=== PATIENT | female | born 1940 | race Caucasian/White ===

== ENCOUNTER 2024-08-10 12:27 | Outpatient (CLI) | payer MEDICARE, BC, SELFPAY ==
--- OUTSIDE RECORDS SUMMARY | 2024-07-23 12:30 | XMS_ITS | Encounter Summary ---
Author Organization [facility] Address [address] [place] [address] Care Team Providers Care Tax Advisor Name Role Phone Lito Sanz MD Unavailable [phone] Kisha Mena MD Primary Care Provider [phone] Chon Rosario MD Unavailable [phone] Chon Rosario MD Unavailable [phone] Reason for Visit * Reason Comments Diplopia Follow-Up Patient is s/p strab sx 03/30/24 for alternating ET and left hypotropia. She was given ground-in prism glasses at her last visit. She reports no initial double vision when she received the glasses but reports the double vision slowly returned - it seems to be worse at near. Vision appears not as clear with the glasses on. Only wearing the glasses when she's out, does not wear any correction while at home. MICHAEL Castillo 07/23/2024 12:08 PM Encounter Details Date Type Department Care Team (Late st Contact Info) Description 07/23/2024 12:30 PM CDT Office Visit [facility] [place] [address] [facility] [address] [place] [id number] Chon Rosario MD [address] [place] [address] Double vision (Primary Dx); Subjective visual disturbance; Hypertropia of left eye Social History Tobacco Use Types Packs/Day Years Used Date Smoking Tobacco: Never Assessed PHQ-2 Answer Date Recorded PHQ-2 Score 0 02/14/2024 Interpersonal Safety Answer Date Record ed Do you feel physically and e motionally safe where you currently live? Yes 03/30/2024 Within the past 12 months, h ave you been hit, slapped, kicked or otherwise physically hurt by someone? No 03/30/2024 Within the past 12 months, h ave you been humiliated or emotionally abused in other ways by your partner or ex-partner? 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 Myasthenia gravis- variable small angle right hypertropia after strabismus surgery leading to variable diplopia. Positive acetylcholine receptor binding antibody check on 05/21/24 2. Esotropia / Strabismus - a component of this was clearly not myasthenia gravis related as patient has not had any horizontal strabismus since her strabismus surgery. Patient seeing neurologist tomorrow. Due to her unexpected change in strabismus after strabismus surgery I checked a acetylcholine receptor binding antibody ( 0.14) on 05/21/24. Patient may have generalized myasthenia gravis given her difficulty with walking in the last year. She needs a CT chest. She is very hesitant to follow-up with me which adds an additional layer of challenge. No dysphagia. 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 - patient has healed up well after strabismus surgery 35 minutes were spent on the date of the encounter by me doing chart review, history and exam, documentation, and further activities as noted above Complete documentation of historical and exam elements from today's encounter can be found in the full encounter summary report (not reduplicated in this progress note). I personally obtained the chief complaint(s) and history of present illness. I confirmed and edited as necessary the review of systems, past medical/surgical history, family history, social history, and examination findings as documented by others; and I examined the patient myself. I personally reviewed the relevant tests, images, and reports as documented above. I formulated and edited as necessary the assessment and plan and discussed the findings and management plan with the patient and family MD Radha Johnson, OD documented in this encounter Plan of Treatment Upcoming Encounters Date Type Department Care Team (Late st Contact Info) Description 12/04/2024 11:00 AM CDT Office Visit [facility] [address] [place] [address] Chon Rosario MD [address] [place] [address] documented as of this encounter Procedures Procedure Name Priority Date/Time Associated Diagnosis Comments SENSORIMOTOR Routine 07/23/2024 1:37 PM CDT Double vision Subjective visual disturbance Hypertropia of left eye documented in this encounter Results * Sensorimotor (07/23/2024 1:37 PM CDT) Narrative Chon Rosario MD - 07/23/2024 1:37 PM CDT Performed by: robbie . Patient cooperation: Reliable . Reliability of the test: Good . Test Findings: Strabismus . Interpretation: Hypertropia, Noncomitant strabismus . Plan: Will monitor and consider eye muscle surgery, Prism therapy . Interval: Better . Chon Rosario MD OPHTHALMOLOGY Fin al Result documented in this encounter Visit Diagnoses Diagnosis Double vision- Primary Diplopia Subjective visual disturbance Subjective visual disturbance, unspecified Hypertropia of left eye documented in this encounter Care Teams Tax Advisor Relationship Specialty Start Date End Date Kisha Mena MD [address] [place] [address] PCP - General Family Medicine 12/17/23 Lito Sanz MD [address] [place] [address] [phone] Ophthalmology 11/01/23 Chon Rosario MD [address] [place] [address] [id number] Ophthalmology 12/17/23 Chon Rosario MD [address] [place] [address] [phone] Assigned Surgical Provider 03/05/24 documented as of this encounter
--- OUTSIDE RECORDS SUMMARY | 2024-07-23 12:30 | XMS_ITS | Encounter Summary ---
Author Organization [facility] Address [address] [place] [address] Care Team Providers Care Sewing Trimmer Name Role Phone Lito Sanz MD Unavailable [phone] Kisha Mena MD Primary Care Provider [phone] Chon Rosario MD Unavailable [phone] Chon Rosario MD Unavailable [phone] Reason for Visit * Reason Comments Diplopia [...] Description 07/23/2024 12:30 PM CDT Office Visit [facility] [place] [address] [facility] [address] [place] [phone] Chon Rosario MD [address] [place] [address] Double vision (Primary Dx); Subjective [...] on file 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 Gender Identity Not on file Sexual Orientation [...] Description 12/04/2024 11:00 AM CDT Office Visit [facility] [address] [place] [address] Chon Rosario MD [address] [place] [address] documented as of this encounter Procedures Procedure [...] eye documented in this encounter Care Teams Sewing Trimmer Relationship Specialty Start Date End Date Kisha Mena MD [address] [place] [address] PCP - General Family Medicine 12/17/23 Lito Sanz MD [address] [place] [address] [phone] Ophthalmology 11/01/23 Chon Rosario MD [address] [place] [address] [phone] Ophthalmology 12/17/23 Chon Rosario MD [address] [place] [address] [phone] Assigned Surgical Provider 03/05/24 documented as of this encounter
--- OUTSIDE RECORDS SUMMARY | 2024-07-24 11:00 | XMS_ITS | Encounter Summary ---
Author Organization [facility] Address [address] [place] [address] Care Team Providers Care Instrumentation Instructor Name Role Phone Kisha Mena MD Primary Care Prov ider Wood Lanier MD Unavailable [phone] Reason for Referral * Other (Routine) - Open Specialty Diagnoses / Procedures Referred By Yolanda hennessy Referred To Contact Diagnoses Ataxia Hyperreflexia Diplopia Procedures N NEUROLOGY APPOINTMENT Wood Lanier MD [address] [place] [address] [place] [address] Phone: tel: fax: Referral ID Status Reason Start Date Expiration Date Visits Re quested Visits Authorized [id number] Open 10/24/2024 1 1 * Consultation (Routine) - Authorized Specialty Diagnoses / Procedures Referred By Yolanda hennessy Referred To Contact Physical Therapy Diagnoses Ataxia Wood Lanier MD [address] [place] [address] [place] [address] Phone: tel: fax: Referral ID Status Reason Start Date Expiration Date Visits Requested Visits Authorized [id number] Authorized Specialty Services Required 07/24/2024 1 1 Question Answer Service to provide Physical Therapy Referral reason Evaluate and Treat Comments Weakness, myasthenia gravis, but does not explain degree of ataxia * (Routine) - Open Specialty Diagnoses / Procedures Referred By Contac t Referred To Contact Diagnoses Thymoma Procedures CT CHEST HIGH RESOLUTION FULL Wood Lanier MD [address] [place] [address] [place] [address] Phone: tel: fax: Referral ID Status Reason Start Date Expiration Date Visits Re quested Visits Authorized [id number] Open 07/24/2024 1 1 * (Routine) - Open Specialty Diagnoses / Procedures Referred By Yolanda t Referred To Contact Diagnoses Ataxia Hyperreflexia Procedures MRI SPINE CERVICAL W/O CON Wood Lanier MD [address] [place] [address] [place] [address] Phone: tel: fax: Referral ID Status Reason Start Date Expiration Date Visits Re quested Visits Authorized [id number] Open 07/24/2024 1 1 * (Routine) - Open Specialty Diagnoses / Procedures Referred By Yolanda hennessy Referred To Contact Diagnoses Ataxia Hyperreflexia Diplopia Procedures MRI BRAIN W/O&W CON Wood Lanier MD [address] [place] [address] [place] [address] Phone: tel: fax: Referral ID Status Reason Start Date Expiration Date Visits Re quested Visits Authorized [id number] Open 07/24/2024 1 1 Reason for Visit * Reason Comments Gait/Balance Encounter Details Date Type Department Care Team (Late st Contact Info) Description 07/24/2024 11:00 AM CDT Office Visit [facility] - [address] [place] [phone] Wood Lanier MD [address] [place] [address] [address] [place] [address] Ataxia (Primary Dx); Hyperreflexia; Diplopia; Thymoma Social History Tobacco Use Types Packs/Day Years Used Date Smoking Tobacco: Never Smokeless Tobacco: Never Tobacco Cessation:Counseling Given: Not Answered Alcohol Use Standard Drinks/Week Comments Never 0 (1 standard drink = 0.6 oz pur e alcohol) Comments Unknown Sex and Gender Information Value Date Recorded Sex Assigned at Not on file Legal Sex Female 9:22 AM CDT Gender Identity Not on file Sexual Orientation Not on file documented as of this encounter Patient Instructions * Patient Instructions* Wood Lanier MD - 07/24/2024 11:00 AM CDT - You should know that factors such as any sort of illness, excessive heat, or high emotional stress can sometimes worsen the symptoms of myasthenia There are many medications that may potentially worsen myasthenia as well - though most of these are usually tolerated without issue as long as your symptoms have been stable But certain antibiotics in particular have some greater potential for worsening symptoms - this does not always mean that they cannot be used, but to perhaps consider an alternative. Thus, if a healthcare provider ever prescribes you an antibiotic, please make sure they are aware that you have myasthenia and please reach out to me Below are some commonly encountered medications that can cause issues (though there are many more not listed) - Telethromycin should never be used - Macrolide antibiotics (such as azithromycin in a 'Z-pack') can sometimes be used if needed, but an alternative would be better because there is the potential for these worsening symptoms - The same is also true for antibiotics of the 'fluoroquinolone' class (such as 'Cipro'(floxacin) or Levaquin (levofloxacin)) - these should be avoided if possible - Aminoglycoside antibiotics (such as gentamycin) are probably a little riskier and should only be used if there is absolutely no reasonable alternative and would require close monitoring - Botox should also be avoided because of the potential for worsening symptoms of weakness documented in this encounter Progress Notes * Wood Lanier MD - 07/24/2024 11:00 AM CDT Chief Complaints: Chief Complaint Patient presents with Gait/Balance History of Present Illness: 84 year old female presents with trouble walking. She says she was diagnosed with Parkinson's Disease, this was about 10 years ago. She has seen multiple neurologists and other neurologists apparently felt she doesn't have Parkinson's. This is a bitunclear. Things really seemed to worsen about a year ago, prompted her last visit to neurology. She says that there is a problem with her fingers. The description is vague, she doesn't necessarily think she is weak. She notes having diplopia back to adolescence, she had strabismus surgery at age 23. But over time,did seem to worsen as she got older. She had another surgery for strabismus in March. She says that she has not had any issues with diplopia since the strabismus surgery. This is inconsistently stated because later stated that weeks after surgery did have some intermittent diplopia. The history is very inconsistent on this point. No trouble with swallowing or speaking She says that she is having more trouble pushing herself up with her arms. It is not clear if she feels weakness in her legs or feet. She has had many years of numbness in her fingers and toes. She says this has been the case since freezing her fingers and toes decades ago. She has not fallen since last summer Past Medical History/Past Surgical History: No past medical history on file. Past Surgical History: Procedure Laterality Date HX FOOT SURGERY HX HYSTERECTOMY HX STRABISMUS Allergies Allergen Reactions Diltiazem Swelling, lips/tongue Current Outpatient Medications Medication Sig Dispense Refill furosemide (LASIX) 20 mg oral tablet Take 1 tablet (20 mg) by mouth. lisinopriL (PRINIVIL) 10 mg oral tablet Take 1 tablet (10 mg) by mouth Daily. potassium chloride (MICRO-K) 10 mEq oral CpSR Take 1 capsule (10 mEq) by mouth Daily. spironolactone (ALDACTONE) 25 mg oral tablet Take 1 tablet (25 mg) by mouth Daily. No current facility-administered medications for this visit. Social History: Social History Socioeconomic History Marital status: Spouse name: Not on file Number of children: Not on file Years of education: Not on file Highest education level: Not on file Occupational History Not on file Tobacco Use Smoking status: Never Smokeless tobacco: Never Substance and Sexual Activity Alcohol use: Never Drug use: Never Sexual activity: Not on file Other Topics Concern Not on file Social History Narrative Not on file Social Drivers of Health Financial Resource Strain: Low Risk (06/11/2024) Received from [facility] Financial Resource Strain Difficulty of Paying Living Expenses: 3 Difficulty of Paying Living Expenses: Not on file Food Insecurity: No Food Insecurity (06/11/2024) Received from [facility] Food Insecurity Do you worry your food will run out before you are able to buy more?: 1 Transportation Needs: Unmet Transportation Needs (06/11/2024) Received from [facility] Transportation Needs Does lack of transportation keep you from medical appointments?: 2 Does lack of transportation keep you from work, meetings or getting things that you need?: 1 Physical Activity: Not on file Stress: Not on file Social Connections: Socially Integrated (06/11/2024) Received from [facility] Social Connections Do you often feel lonely or isolated from those around you?: 0 Intimate Partner Violence: Low Risk (03/30/2024) Received from [facility] Interpersonal Safety Do you feel physically and emotionally safe where you currently live?: Yes Within the past 12 months, have you been hit, slapped, kicked or otherwise physically hurt by someone?: No Within the past 12 months, have you been humiliated or emotionally abused in other ways by your partner or ex-partner?: No Housing Stability: Low Risk (06/11/2024) Received from [facility] Housing Stability What is your housing situation today?: 1 Family History: No family history on file. Imaging, Tests, Records Reviewed Physical Examination: NEUROLOGICAL: MENTAL STATUS: Alert and oriented. Thought process and content unremarkable. Follows commands appropriately. Speech fluent. CN: II: Visual hardy intact. PERRLA. III, IV, : EOMI. No diplopia with sustained upgaze. V: Symmetric facial sensation to light touch. VII: Face symmetric except noted droopy brow which apparently is her longstanding baseline but enhanced ptosis could be elicited on the left Can puff out cheeks VIII: Reduced hearing on the right side, noting baseline hearing loss IX, X: Symmetric palatal rise. XI: Symmetric shoulder shrug. XII: Tongue midline with symmetric movements. MOTOR: Neck flexion / extension 5/5 Tone is difficult to magisterial district judge, cannot rule out increased tone, but may be technical from trouble relaxing arms RIGHT UE: LEFT UE Deltoid 5/5 5/5 (no evident fatiguing of arms after 20 arm 'flaps') Biceps 5/5 5/5 Triceps 5/5 5/5 Finger abd 5/5 5/5 RIGHT LE: LEFT LE: HF 5/5 5/5 KF 5/5 5/5 KE 5/5 5/5 PF 5/5 5/5 DF 5/5 5/5 * somewhat difficult on right side given leg pain, but no clear focal weakness REFLEXES: RIGHT: LEFT: Biceps 3/4 3/4 Brachioradialis 3/4 3/4 Patellar 2/4 2/4 Achilles 1/4 1/4 * Assessment of achilles reflex limited by edema No lomeli's sign Plantar response flexor b/l. No clonus. SENSATION: Light touch intact and symmetric. CEREBELLAR: Normal F-N-F. No dysmetria. No nystagmus. GAIT: Stable primary gait. Impressions: 84 year old female presents with gait disturbance. This is a very complicated situation. She has had gait disturbance for many years and has seen multiple neurologists for this issue. I do not think the recent myasthenia diagnosis is likely to be the primary explanation for her gait troubles. She has some brisk reflexes in her arms, will order an MRI of the brain and cervical spine, particularly since this issue has significantly worsened in the last year. She does not seem to have much in the way of other focal deficits. I ordered PT, though she notes having worked with them already. Then there is the matter of the recent myasthenia gravis diagnosis. She has little in the way of characteristic symptoms relating to this. It is confusing because she has a history of diplopia going back most of her life, having had strabismus surgery at age 23. She is very inconsistent on whether or how frequently she is experiencing diplopia since her repeat strabismus surgery earlier this year. But I noted that in myasthenia, we need a CT of the chest to look for thymoma and she should startMestinon until we are clear that she is not having any relevant symptoms. But she really does not want to start any medication. I went over medications to avoid with myasthenia, see Patient Instructions for details. We also discussed that symptoms that relate to speaking or swallowing or neck strength can be a sign of a various dangerous worsening, there are cases where such weakness can even inhibit the ability to breathe and thus need to be evaluated emergently in the ER should this ever occur. I told her to call at any point if having more diplopia or she changes her mind about starting Mestinon. Follow up in 3 months I asked patient to contact my office if they do not hear about the results of testing. This is to ensure that our office received records of the results. I am the single focal point of care for a condition that requires longitudinal relationship and personalized care for condition(s) specified within this medical record. I spent 72 minutes on the date of encounter with the patient and before and after the visit on activities detailed in the above note which may include reviewing the EMR, documenting clinical information, and communicating with other health child care provider. Wood Lanier MD [facility] 2024: Documentation of current mediations reviewed every visit 2. Does patient use tobacco? No 3. Patient has had no falls in calendar year 4. Does patient have Dementia? No documented in this encounter Plan of Treatment Scheduled Orders Name Type Priority Associated Diagnoses Orde r Schedule MRI BRAIN W/O&W CON Imaging Routine Ataxia Hyperreflexia Diplopia Expected: 07/24/2024, Expires: 07/24/2025 MRI SPINE CERVICAL W/O CON Imaging Routine Ataxia Hyperreflexia Expected: 07/24/2024, Expires: 07/24/2025 CT CHEST HIGH RESOLUTION FULL Imaging Routine Thymoma Expected: 07/24/2024, Expires: 07/24/2025 Scheduled Referrals Name Type Priority Associated Diagnoses Orde r Schedule REFERRAL PHYSICAL THERAPY Follow Up Routine Ataxia Ordered: 07/24/2024 documented as of this encounter Visit Diagnoses Diagnosis Ataxia- Primary Lack of coordination Hyperreflexia Abnormal reflex Diplopia Thymoma Benign neoplasm of thymus documented in this encounter Care Teams Instrumentation Instructor Relationship Specialty Start Date End Date Kisha Mena MD [address] [place] [address] PCP - General Family Medicine - 06/24/24 Wood Lanier MD [address] [facility] [address] [place] [address] Neurology 06/24/24 documented as of this encounter
--- OUTSIDE RECORDS SUMMARY | 2024-07-24 11:00 | XMS_ITS | Encounter Summary ---
Author Organization [facility] Address [address] [place] [address] Care Team Providers Care Labor Relations Manager Name Role Phone Kisha Mena MD Primary Care Prov ider Wood Lanier MD Unavailable [phone] Reason for Referral * Other (Routine) - Open Specialty Diagnoses / Procedures Referred By Yolanda hennessy Referred To Contact Diagnoses Ataxia Hyperreflexia Diplopia Procedures N NEUROLOGY APPOINTMENT Wood Lanier MD [address] [place] [address] [place] [address] Phone: tel: fax: Referral ID Status Reason Start Date Expiration Date Visits Re quested Visits Authorized [id number] Open 10/24/2024 1 1 * Consultation (Routine) - Authorized Specialty Diagnoses / Procedures Referred By Yolanda hennessy Referred To Contact Physical Therapy Diagnoses Ataxia Wood Lanier MD [address] [place] [address] [place] [address] Phone: tel: fax: Referral ID Status Reason Start Date Expiration Date Visits Requested Visits Authorized [id number] Authorized Specialty Services Required 07/24/2024 1 1 Question Answer Service to provide Physical Therapy Referral reason Evaluate and Treat Comments Weakness, myasthenia gravis, but does not explain degree of ataxia * (Routine) - Open Specialty Diagnoses / Procedures Referred By Contac t Referred To Contact Diagnoses Thymoma Procedures CT CHEST HIGH RESOLUTION FULL Wood Lanier MD [address] [place] [address] [place] [address] Phone: tel: fax: Referral ID Status Reason Start Date Expiration Date Visits Re quested Visits Authorized [id number] Open 07/24/2024 1 1 * (Routine) - Open Specialty Diagnoses / Procedures Referred By Yolanda t Referred To Contact Diagnoses Ataxia Hyperreflexia Procedures MRI SPINE CERVICAL W/O CON Wood Lanier MD [address] [place] [address] [place] [address] Phone: tel: fax: Referral ID Status Reason Start Date Expiration Date Visits Re quested Visits Authorized [id number] Open 07/24/2024 1 1 * (Routine) - Open Specialty Diagnoses / Procedures Referred By Yolanda hennessy Referred To Contact Diagnoses Ataxia Hyperreflexia Diplopia Procedures MRI BRAIN W/O&W CON Wood Lanier MD [address] [place] [address] [place] [address] Phone: tel: fax: Referral ID Status Reason Start Date Expiration Date Visits Re quested Visits Authorized [id number] Open 07/24/2024 1 1 Reason for Visit * Reason Comments Gait/Balance Encounter Details Date Type Department Care Team (Late st Contact Info) Description 07/24/2024 11:00 AM CDT Office Visit [facility] of Neurology - [address] [place] [phone] Wood Lanier MD [address] [place] [address] [address] [place] [address] Ataxia (Primary Dx); Hyperreflexia; Diplopia; Thymoma Social [...] Resource Strain: Low Risk (06/11/2024) Received from [facility] Financial Resource Strain Difficulty of Paying Living Expenses: 3 Difficulty of Paying Living Expenses: Not on file Food Insecurity: No Food Insecurity (06/11/2024) Received from [facility] Food Insecurity Do you worry your food will run out before you are able to buy more?: 1 Transportation Needs: Unmet Transportation Needs (06/11/2024) Received from [facility] Transportation Needs Does lack of transportation keep you from medical appointments?: 2 Does lack of transportation keep you from work, meetings or getting things that you need?: 1 Physical Activity: Not on file Stress: Not on file Social Connections: Socially Integrated (06/11/2024) Received from [facility] Social Connections Do you often feel lonely or isolated from those around you?: 0 Intimate Partner Violence: Low Risk (03/30/2024) Received from [facility] Interpersonal Safety Do you feel physically and emotionally safe where you currently live?: Yes Within the past 12 months, have you been hit, slapped, kicked or otherwise physically hurt by someone?: No Within the past 12 months, have you been humiliated or emotionally abused in other ways by your partner or ex-partner?: No Housing Stability: Low Risk (06/11/2024) Received from [facility] Housing Stability What is your housing situation [...] / extension 5/5 Tone is difficult to certified credit counselor, cannot rule out increased tone, but may [...] clinical information, and communicating with other health customer care associate. Wood Lanier MD [facility] 2024: Documentation of current mediations reviewed [...] thymus documented in this encounter Care Teams Labor Relations Manager Relationship Specialty Start Date End Date Kisha Mena MD [address] [place] [address] PCP - General Family Medicine - 06/24/24 Wood Lnaier MD [address] [facility] [address] [place] [address] Neurology 06/24/24 documented as of this encounter
--- OUTSIDE RECORDS SUMMARY | 2024-08-10 12:45 | XMS_ITS | Encounter Summary ---
Author Organization [facility] Address [address] [facility] [address] Care Team Providers Care Solar Installation Manager Name Role Phone Lito Sanz MD Unavailable Kisha Mena MD Primary Care Provider [phone] Chon Rosario MD Unavailable [phone] Chon Rosario MD Unavailable [phone] Reason for Visit * Reason Onset Date Comments Call Back 04/01/2024 Encounter Details Date Type Department Care Team (Late st Contact Info) Description 04/01/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 Please call to discuss. Thank you Action Taken: Message routed to: [facility] EYE Travel Screening: Not Applicable Date of Service: E SETTINGS PAINTER documented in this encounter Plan of Treatment Upcoming Encounters Date Type Department Care Team (Late st Contact Info) Description 12/04/2024 11:00 AM CDT Office Visit [facility] [address] [facility] 9 Fl Clin 9A [place] [address] Chon Rosario MD [address] [place] [address] documented as of this encounter Visit Diagnoses Not on filedocumented in this encounter Care Teams Solar Installation Manager Relationship Specialty Start Date End Date Kisha Mena MD [address] [place] [address] PCP - General Family Medicine 12/17/23 Lito Sanz MD [address] [place] [id number] Ophthalmology 11/01/23 Chon Rosario MD [address] [place] [id number] Ophthalmology 12/17/23 Chon Rosario MD [address] [place] [address] Assigned Surgical Provider 03/05/24 documented as of this encounter
--- OUTSIDE RECORDS SUMMARY | 2024-08-10 12:45 | XMS_ITS | Clinical Summary ---
Author Organization [facility] Address [address] [place] [address] Care Team Providers Care Biometrics Analyst Name Role Phone Kisha Mena MD Primary Care Prov ider Wood Lanier MD Unavailable [phone] Allergies Active Allergy Reactions Criticality Noted Date Comments Diltiazem Swelling, lips/tongue 09/07/2010 Medications furosemide (LASIX) 20 mg oral tablet Take 1 tablet (20 mg) by mouth. 10/02/2023 Active lisinopriL (PRINIVIL) 10 mg oral tablet Take 1 tablet (10 mg) by mouth Daily. 02/03/2024 Active potassium chloride (MICRO-K) 10 mEq oral CpSR Take 1 capsule (10 mEq) by mouth Daily. 02/03/2024 Active spironolactone (ALDACTONE) 25 mg oral tablet Take 1 tablet (25 mg) by mouth Daily. 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 Strabismus 03/10/2024 Double vision 02/14/2024 Malignant neoplasm of skin 06/04/2023 Overview (07/24/2024): Tareen Primary osteoarthritis of right knee 02/15/2023 Dry eyes 08/07/2013 Osteopenia 10/16/2011 Overview (07/24/2024): 2013 increase bone loss in spine and hips stable repeat in 3-5 years Diverticulosis of colon 10/03/2010 Overview (07/24/2024): Colonoscopy 09/2010 diverticulosis, incomplete, recommend BE in future BE 10/2010 diverticulosis, no polyps Mixed incontinence urge and stress (male)(female ) 02/24/2008 Onychomycosis 02/24/2008 Dysthymic disorder 02/20/2007 Overview (07/24/2024): No medication Esophageal reflux 02/20/2007 Essential hypertension 02/20/2007 Other abnormal glucose 02/20/2007 Resolved Problems Problem Noted Date Diagnosed Date Resolved Date Parkinson's disease 02/26/2019 08/09/19 25 Encounters Date Type Department Care Team Description 07/24/2024 11:00 AM CDT Office Visit [facility] of Neurology [address] [place] [address] Wood Lanier MD Ataxia (Primary Dx); Hyperreflexia; Diplopia; Thymoma from Last 3 Months Social History Tobacco Use Types Packs/Day Years [...] on file Sexual Orientation Not on file Plan of Treatment Health Maintenance Due Date Last Done Comments Colonoscopy 1942 Lipid Screening 1942 Depression Follow-Up (PHQ-9) 1943 Yearly Review of HCD 01/16/1992 RSV Vaccines (1 - 1-dose 75+ series) 2017 Osteoporosis Screening 04/19/2023 2, 02/09/2014, 10/16/2011 COVID-19 Vaccine ( season) 2024 11/25/2023, 11/20/2022, 06/22/2022, Additional history exists Medicare Wellness Visit 06/11/2025 06/12/19, 06/04/2023, 04/03/2022, Additional history exists Adult Tetanus Booster 02/05/2033 02/05/2023 , 02/28/2010, 02/24/2008 Pneumococcal 50+ Years Completed 01/24/2017, 2008 Zoster Vaccine Completed 02/15/2023, 10/12, 02/28/2010 Influenza Vaccine Completed 11/25/2023, , 11/15/2021, Additional history exists Meningococcal B Vaccine Aged Out No l onger eligible based on patient's age to complete this topic Insurance MEDICARE PART A & [facility] FED[employer]AL [employer]PLOYEE Care Teams Biometrics Analyst Relationship Specialty Start Date End Date Kisha Mena MD [address] [place] [address] PCP - General Family Medicine - 06/24/24 Wood Lanier MD [address] [facility] [address] [place] [address] Neurology 06/24/24
--- OUTSIDE RECORDS SUMMARY | 2024-08-10 12:46 | XMS_ITS | Clinical Summary ---
Author Organization [facility] Address Formerly [facility] [place] [address] Care Team Providers Care Advice Clerk Name Role Phone Lito Sanz MD Unavailable [phone] Kisha Mena MD Primary Care Provider [phone] Chon Rosario MD Unavailable [phone] Chon Rosario MD Unavailable [phone] Allergies No known active allergies Medications HYDROCHLOROTHIA ZIDE PO Active LISINOPRIL PO Active furosemide (LASIX) 20 MG tablet Take 20 mg by mouth. 4 Active prednisoLONE acetate (PRED FORTE) 1 % ophthalmic suspensionIndic ations:Status post eye surgery Instill 1 drop into operative eye(s) four times a day. Do NOT start drops until instructed by Surgeon. 10 mL 5 Active neomycin-polymy collins-dexAMETHaso ne (MAXITROL) 3.5-67659-3.1 ophthalmic ointmentIndicat ions:Status post eye surgery Place 1/2 inch of ointment in both eyes until next visit 10 g 5 Active Active Problems Problem Noted Date Diagnosed Date Double vision 02/14/2024 Malignant neoplasm of skin 06/04/2023 Overview (02/14/2024): Tareen Primary osteoarthritis of right knee 02/15/2023 Melanoma of skin 09/27/2022 Parkinson's disease 02/26/2019 Morbid obesity with BMI of 40.0-44.9, adult 11/0 02/2015 Dry eyes 08/07/2013 Osteopenia 10/16/2011 Overview (02/14/2024): 2013 increase bone loss in spine and hips stable repeat in 3-5 years Diverticulosis of colon 10/03/2010 Overview (02/14/2024): Colonoscopy 09/2010 diverticulosis, incomplete, recommend BE in future BE 10/2010 diverticulosis, no polyps Mixed incontinence urge and stress (male)(female ) 02/24/2008 Onychomycosis 02/24/2008 Dysthymic disorder 02/20/2007 Overview (02/14/2024): No medication Esophageal reflux 02/20/2007 Essential hypertension 02/20/2007 Other abnormal glucose 02/20/2007 Encounters Date Type Department Care Team Description 07/24/[address] [address] Chon Rosario MD Neurologist info 07/23/2024 12:30 PM CDT Office Visit [address] [address] Chon Rosario MD Double vision (Primary Dx); Subjective visual disturbance; Hypertropia of left eye 07/23/2024 Travel 05/21/2024 1:45 PM CDT Lab [facility] [address] 1[address] [place] [address] Double vision; Hypertropia of right eye 05/21/2024 10:30 AM CDT Office Visit [address] [address] Chon Rosario MD Hypertropia of right eye (Primary Dx); Double vision; Subjective visual disturbance 05/21/2024 Travel from Last 3 Months Social History Tobacco [...] on file 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 Gender Identity Not on file Sexual Orientation Not on file Last Filed Vital Signs Vital Sign Reading Time Taken Comments Blood Pressure 135/69 03/30/2024 10:21 AM SENIOR OPERATOR Pulse 59 03/30/2024 10:21 AM SENIOR OPERATOR Temperature 36.1 C (97 F) 03/30/2024 10:21 AM SENIOR OPERATOR Respiratory Rate 16 03/30/2024 10:21 AM SENIOR OPERATOR Oxygen Saturation 95% 03/30/2024 10:21 AM SENIOR OPERATOR Inhaled Oxygen Concentration - - Weight 83 kg (183 lb) 03/30/2024 6:15 AM SENIOR OPERATOR Height 162.6 cm (5' 4) 03/30/2024 6:15 AM SENIOR OPERATOR Body Mass Index 31.41 03/30/2024 6:15 AM SENIOR OPERATOR Plan of Treatment Upcoming Encounters Date Type Department Care Team (Late st Contact Info) Description 12/04/2024 11:00 AM CDT Office Visit [facility] Eye [place] [id number] [facility] 9th Ma Clin 9A [place] [address] Chon Rosario MD [address] [place] [address] Health Maintenance Due Date Last Done Comments ADVANCE CARE PLANNING 1942 ANNUAL REVIEW OF HM ORDERS 1942 BMP 1942 DEPRESSION ACTION PLAN 1942 PHQ-9 1942 FALL RISK ASSESSMENT 2007 RSV VACCINE (1 - 1-dose 75+ series) 2017 COVID-19 VACCINE ( season) 2024 11/25/2023, 11/20/2022, 06/22/2022, Additional history exists MEDICARE ANNUAL WELLNESS VISIT 06/11/2025 06/11/2024, 06/04/2023, 04/03/2022, Additional history exists DTAP/TDAP/TD VACCINE (3 - Td or Tdap) 02/05/2033 02/05/2023, 02/28/2010, 02/24/2008 DEXA 04/18/2036 04/18/2021 PNEUMOCOCCAL VACCINE 50+ YEARS Completed 01/24/2017, 02/24/2008 ZOSTER VACCINE Completed 02/15/2023, 10/12, 02/28/2010 INFLUENZA VACCINE Completed 11/25/2023, , 11/15/2021, Additional history exists HPV VACCINE Aged Out No longer eligi ble based on patient's age to complete this topic MENINGITIS VACCINE Aged Out No longer eligible based on patient's age to complete this topic Procedures Procedure Name Priority Date/Time Associated Diagnosis Comments SENSORIMOTOR Routine 07/23/2024 1:37 PM CDT Double vision Subjective visual disturbance Hypertropia of left eye ACHR MODULATING FLOW CYTOMETRY, S Routine 05/21/2024 12:39 PM CDT Double vision Hypertropia of right eye MYASTHENIA GRAVIS (MG) EVALUATION WITH MUSK REFLEX Routine 05/21/2024 12:39 PM CDT Double vision Hypertropia of right eye from Last 3 Months Results * Sensorimotor (07/23/2024 1:37 PM CDT) Narrative Chon Rosario MD - 07/23/2024 1:37 PM CDT Performed by: robbie . Patient cooperation: Reliable . Reliability of the test: Good . Test Findings: Strabismus . Interpretation: Hypertropia, Noncomitant strabismus . Plan: Will monitor and consider eye muscle surgery, Prism therapy . Interval: Better . us Chon Rosario MD OPHTHALMOLOGY Fin al Result * (ABNORMAL) Myasthenia Gravis (MG) Evaulation with MuSK Reflex (05/21/2024 12:39 PM CDT) ACh Receptor (Muscle) Binding Ab 0.14(H) <=0.02 nmol/L 05/28/2024 5:13 PM CDT [facility] Comment: Due to a change in assay reagent for the Acetylcholine Receptor (Muscle AChR) Binding Antibody (ARBI) test, direct quantitative comparison to previous testing results is not advised. ADDITIONAL INFORMATION This test was developed and its performance characteristics determined by [facility] in a manner consistent with CLIA requirements. This test has not been cleared or approved by the U.S. Food and Drug Administration. Test Performed by: [facility] [place] [address] Park Ranger: Tiffany Garces Ph.D.; CLIA# [id number] MG Interpretive Comments SEE NOTE 05/28/2024 5:13 PM CDT [facility] Comment: The following antibodies were identified: muscle acetylcholine receptor binding antibodies. This profile in an appropriate clinical and electrophysiological context, is consistent with autoimmune myasthenia gravis. A paraneoplastic basis should be considered with thymoma being most commonly associated. Blood STRUCTURE OF RIGHT UPPER LIMB / Unknown Venipuncture / Unknown 05/21/2024 12:39 PM CDT 05/21/2024 12:39 PM CDT us Chon Rosario MD LAB - BLOOD ORDERAB LES Final Result [facility] [address] [place] [address], [facility] [phone] * AChR Modulating Flow Cytometry, S: (05/21/2024 12:39 PM CDT) Pathologist [facility] AChR Modulating Flow Cytometry, S Negative Negative 05/28/2024 3:29 PM CDT [facility] Comment: ADDITIONAL INFORMATION This test was developed and its performance characteristics determined by [facility] in a manner consistent with CLIA requirements. This test has not been cleared or approved by the U.S. Food and Drug Administration. Test Performed by: [facility] - [facility] [address] [place] [address] Park Ranger: Tiffany Garces Ph.D.; CLIA# [id number] Blood STRUCTURE OF RIGHT UPPER LIMB / Unknown Venipuncture / Unknown 05/21/2024 12:39 PM CDT 05/21/2024 12:39 PM CDT us Chon Rosario MD LAB - CSF ORDERABLE S Final Result [facility] [address] [place] [address], [facility] [phone] from Last 3 Months Insurance [facility] [employer]EE [employer] MEDICARE Care Teams Advice Clerk Relationship Specialty Start Date End Date Kisha Mena MD [address] [place] [address] PCP - General Family Medicine 12/17/23 Lito Sanz MD [address] [place] [id number] Ophthalmology 11/01/23 hCon Rosario MD [address] [place] [address] Ophthalmology 12/17/23 Chon Rosario MD [address] [place] [id number] Assigned Surgical Provider 03/05/24
--- OUTSIDE RECORDS SUMMARY | 2024-08-10 12:46 | XMS_ITS | Encounter Summary ---
Author Organization [facility] Address [address] [facility] [place] [address] Care Team Providers Care Laundry Sorter Name Role Phone Lito Snaz MD Unavailable [phone] Kisha Mena MD Primary Care Provider [phone] Chon Rosario MD Unavailable [phone] Chon Rosario MD Unavailable [phone] Reason for Visit * Reason Onset Date Comments Neurologist info 07/24/2024 Encounter Details Date Type Department Care Team (Late st Contact Info) Description 07/24/[address] Clin [address] [place] [phone] Chon Rosario MD [address] [place] [address] Neurologist info Social History Tobacco Use Types Packs/Day Years [...] on file 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 Gender Identity Not on file Sexual Orientation Not on file documented as of this encounter Miscellaneous Notes * Telephone Encounter - aMureen Barbosa - 07/24/2024 8:46 AM CDT Health Call Center Phone Message May a detailed message be left on voicemail: yes Reason for Call: Other: Pt wanted to let Dr Rosario know the name of her neurologist that pt is seeing today [place] [facility] provider Dr Gregorio Pt advised she does not need a call back but just needed this information to be given to Dr Rosario please Action Taken: Message routed to: [facility] eye Travel Screening: Not Applicable Date of Service: documented in this encounter Plan of Treatment Upcoming Encounters Date Type Department Care Team (Late st Contact Info) Description 12/04/2024 11:00 AM CDT Office Visit [facility] - [place] [address] [facility] Clin [address] [place] [address] Chon Rosario MD [address] [place] [address] documented as of this encounter Visit Diagnoses Not on filedocumented in this encounter Care Teams Laundry Sorter Relationship Specialty Start Date End Date Kisha Mena MD [address] [place] [address] PCP - General Family Medicine 12/17/23 Lito Sanz MD [address] [place] [address] Ophthalmology 11/01/23 Chon Rosario MD [address] [place] [address] Ophthalmology 12/17/23 Chon Rosario MD [address] [place] [address] [address] Assigned Surgical Provider 03/05/24 documented as of this encounter
--- OUTSIDE RECORDS SUMMARY | 2024-08-10 12:46 | XMS_ITS | Clinical Summary ---
Author Organization [facility] [facility] Address [address] [place] [id number] Care Team Providers Care Merchandiser Seasonal Name Role Phone Kisha Mena MD Primary Care Prov ider Allergies Active Allergy Reactions Criticality Noted Date Comments Diltiazem Edema 09/07/2010 Medications Calcium Carb-Mag Oxide-Vit D3 (CALCIUM MAGNESIUM + D) [id number] mg-mg-unit tablet Take by mouth. 0 1 Active cholecalciferol (VITAMIN D) 2,000 unit capsule Take 1 capsule by mouth once daily. 0 1 Active omega-3 fatty acids-vitamin E (FISH OIL) 1,000 mg Cap Take by mouth. 0 2 Active ascorbic acid (VITAMIN C) 1,000 mg Tab Take by mouth once daily. 0 2 Active furosemide (LASIX) 20 mg tabletIndications :Pulmonary hypertension (HC) Take 1 Tablet (20 mg) by mouth once daily in the morning. 90 Tablet 3 4 Active lisinopriL (PRINIVIL; ZESTRIL) 10 mg tabletIndications :Essential hypertension with goal blood pressure less than 140/90,Pulmonary hypertension (HC) Take 1 Tablet (10 mg) by mouth once daily. 90 Tablet 3 4 Active potassium chloride (MICRO-K) 10 mEq Controlled-releas e capsuleIndication s:Essential hypertension with goal blood pressure less than 140/90,Pulmonary hypertension (HC) Take 1 Capsule (10 mEq) by mouth once daily. 90 Capsule 3 4 Active spironolactone (ALDACTONE) 25 mg tabletIndications :Pulmonary hypertension (HC),Essential hypertension with goal blood pressure less than 140/90 Take 1 Tablet (25 mg) by mouth once daily. 90 Tablet 3 5 Active Active Problems Problem Noted Date Diagnosed Date Acute on chronic heart failu re with preserved ejection fraction 06/11/2024 Chronic heart failure with p reserved ejection fraction (HFpEF) 03/10/2024 Chronic acquired lymphedema 03/10/2024 Chronic pain of right knee 03/10/2024 Overview (03/10/2024): Limited mobility from knee pain. Strabismus 03/10/2024 Skin cancer 06/04/2023 Overview (06/04/2023): Tareen Primary osteoarthritis of right knee 02/15/2023 Melanoma 09/27/2022 Morbid obesity with BMI of 40.0-44.9, adult 11/0 02/2015 Dry eyes 08/07/2013 Osteopenia 10/16/2011 Overview (01/24/2017): 2013 increase bone loss in spine and hips stable repeat in 3-5 years Diverticulosis of colon (without mention of hemo rrhage) 10/03/2010 Overview (10/17/2010): Colonoscopy 09/2010 diverticulosis, incomplete, recommend BE in future BE 10/2010 diverticulosis, no polyps Onychomycosis 02/24/2008 Mixed incontinence urge and stress (male)(female ) 02/24/2008 Esophageal reflux 02/20/2007 Unspecified essential hypertension 02/20/2007 Dysthymic disorder 02/20/2007 Overview (02/20/2007): No medication Other abnormal glucose 02/20/2007 Resolved Problems Problem Noted Date Diagnosed Date Resolved Date Parkinson's disease 02/26/2019 03/10/19 25 Encounters Date Type Department Care Team Description 07/28/2024 11:30 AM CDT Telemedicine [facility] [id number] [place] [address] [place] [address] [place] [address] Dennis Perez MD 07/28/2024 Travel 07/22/2024 11:45 AM CDT Orders Only [facility] [address] [place] [address] Lab, [place] [facility] 07/22/2024 10:00 AM CDT Ancillary Procedure [facility] [address] [place] [address] 07/22/2024 Travel 06/24/2024 Telephone [facility] [address] [place] [address] Kisha Mena MD Referral 06/17/2024 Nurse Triage [address] [address] Kisha Mena MD Dizziness 06/17/[address] [place] [address] Kisha Mena MD Referral (Neurology) 06/11/2024 11:05 AM CDT Office Visit [address] [place] [address] Kisha Mena MD Medicare ANNUAL (subsequent) Visit (84 yo female) 06/11/2024 Travel 05/25/2024 11:30 AM CDT Nurse/Clinic Staff Only [address] [address] Immunization/Inject ion (PROLIA INJECTION) 05/25/2024 Travel from Last 3 Months Immunizations Immunization Administration Dates Next Due COVID-19 vaccine (Gocella-Bio NTech 30mcg/0.3mL) 12YO+ ALICJA-SUCROSE MARIPOSA NICHOLS 06/14/2021 COVID-19 vaccine (Gocella-Bio NTech 30mcg/0.3mL) MARIPOSA NICHOLS 11/28/2020,04/28/2020,04/07/2020 Influenza A (H1N1), Inactivated 02/28/2009 Influenza A (H1N1), Inactiva luciano (Age >=3 Years) 02/28/2009 Influenza RIV4 (Age 18+ Year s) PRESERV FREE 11/20/2018 Influenza, High-dose Inactivated 024,12/06/2016,12/06/2015,2014,10/23/2012 Influenza, High-dose Quadriv alent Inactivated 11/20/2022,11/15/2021,11/01/2020 Influenza, IIV3 (Age >=3 years) 10/26/2009 Influenza, Inactivated IIV3 (Age 65+ Years) Preserv Free 10/22/2017 Pneumococcal Poly,23-Valent (Pneumovax) 02/24/2008 Pneumococcal conj 13-Valent (Prevnar 13) 01/24/2017 Td, Preservative Free (age > = 7 Years) 02/24/2008 Tdap 02/05/2023,02/28/2010 Zoster (Shingrix-RZV, recombinant) 02/15/2023, Zoster (Zostavax-ZVL, live) 02/28/2010 Family History Medical History Relation Name Comments Diabetes Brother Hypertension Brother Parkinsonism Brother Allergies Daughter Other Daughter back issues Psychiatric illness Daughter ADD koffi re depression Other Father lung issues lik marvin enviornmental Cancer-breast Maternal Aunt Cancer-colon Mother possible Other Mother Dementia onset age 70 Cancer-colon Other 1 P cousin Cancer-breast Other 2 Pat. cousin x3 Alcohol/Drug Paternal Aunt Diabetes Paternal Grandmother Diabetes Paternal Uncle Hypertension Son Other Son back issues wit h nerve Cancer-ovarian No Family History Relation Name Status Comments Brother Daughter Father Maternal Aunt Mother Other 1 Other 2 Alive Paternal Aunt Paternal Grandmother Paternal Uncle Son Social History Tobacco Use Types Packs/Day Years Used Date Smoking Tobacco: Never Smokeless Tobacco: Never Tobacco Cessation:Counseling Given: Yes Alcohol Use Standard Drinks/Week Comments Not Currently 0 (1 standard drink = 0.6 oz pur e alcohol) PHQ-2 Answer Date Recorded PHQ-2 TOTAL SCORE 0 06/11/2024 Social Connections Answer Date Recorded Do you often feel lonely or isolated from those around you? 0 06/11/2024 Financial Resource Strain Answer Date R ecorded Difficulty of Paying Living Expenses 3 06/11/2024 Difficulty of Paying Living Expenses Not on file 06/11/2024 Food Insecurity Answer Date Recorded Do you worry your food will run out before you are able to buy more? 1 06/11/2024 Transportation Needs Answer Date Record ed Does lack of transportation keep you from medica l appointments? 2 06/11/2024 Does lack of transportation keep you from work, meetings or getting things that you need? 1 06/11/2024 Housing Stability Answer Date Recorded What is your housing situation today? 1 06/11/2024 Interpersonal Safety Answer Date Record ed Are you being hit, kicked, p ushed or yelled at (see row info)? No 08/16/2023 Interpersonal Safety Abuse 12 - 18 Not on file 08/16/2023 Interpersonal Safety Ambulatory Vulnerability No t on file 08/16/2023 Utilities Answer Date Recorded Do you have trouble paying f or utilities (for example, heat, electricity, water, phone)? 1 06/11/2024 Comments No Sex and Gender Information Value Date Recorded Sex Assigned at Not on file Legal Sex Female 5:26 AM GAS SCRUBBER OPERATOR Gender Identity Not on file Sexual Orientation Not on file Obstetrics History Para Term AB IAB SAB Ectopic Multiple Livin g Live Births 3 2 1 1 2 Date Outcome GA Total Labor Labor/2nd/3rd Weight Sex Type Anes PTL Yadira A1 A5 Name Clin SAB Para Para Last Filed Vital Signs Vital Sign Reading Time Taken Comments Blood Pressure 134/68 07/27/2024 10:26 AM CDT Pulse 66 06/11/2024 10:57 AM CDT Temperature 36.4 C (97.6 F) 03/10/2024 2:36 PM GAS SCRUBBER OPERATOR Respiratory Rate 14 08/16/2023 2:51 PM CDT Oxygen Saturation 100% 06/11/2024 10:57 AM CDT Inhaled Oxygen Concentration - - Weight 83.5 kg (184 lb) 07/27/2024 10:26 AM CDT Height 162.6 cm (5' 4) 07/27/2024 10:26 AM CDT Body Mass Index 31.58 07/27/2024 10:26 AM CDT Plan of Treatment Upcoming Encounters Date Type Department Care Team (Late st Contact Info) Description 08/19/2024 11:45 AM CDT Appointment [address] [address] Mica Huggins, PT [address] [place] [address] Health Maintenance Due Date Last Done Comments RSV vaccine for adults or (1 - 1-dose 75+ series) 2017 COVID-19 vaccine series (2023- season) 2024 11/25/2023, 11/20/2022, 06/22/2022, Additional history exists Depression screening for age 12+ 06/11/2025 06/11/2024, 06/04/2023, 06/04/2023, Additional history exists Medicare Wellness for age 65+ 06/12/2025 06/11/2024, 06/04/2023, 04/03/2022, Additional history exists BMI (ht and wt on same day) for age 18+ 07/27/2025 07/27/2024, 06/11/2024, 03/10/2024, Additional history exists Tetanus booster 02/05/2033 02/05/2023, 02/11, 02/24/2008 Pneumococcal series for age 50+ Completed 01/24/2017, 02/24/2008 DEXA/DXA scan for age 65+ Completed 2021, 02/09/2014, 10/16/2011, Additional history exists Tdap Completed 02/05/2023, 02/28/2010 Zoster (shingles) series for age 50+ Completed 02/15/2023, 10/22/2022, 02/28/2010 Influenza Vaccine Completed 11/25/2023, , 10/22/2017, Additional history exists Hepatitis B series for 19+ Aged Out N o longer eligible based on patient's age to complete this topic Procedures Procedure Name Priority Date/Time Associated Diagnosis Comments [facility] ERROR MESSAGE ABN TEST REFUSAL ([facility]) Routine 07/22/2024 11:00 AM CDT BASIC METABOLIC PANEL Routine 07/22/2024 11:00 AM CDT Pulmonary hypertension (HC) Essential hypertension with goal blood pressure less than 140/90 ECHO TTE COMPLETE WO CONTRAST Routine 07/22/2024 10:37 AM CDT Pulmonary hypertension (HC) Essential hypertension with goal blood pressure less than 140/90 BASIC METABOLIC PANEL Routine 06/11/2024 12:32 PM CDT Essential hypertension with goal blood pressure less than 140/90 LIPID PANEL W REFLEX MEASURED LDL Routine 06/11/2024 12:32 PM CDT Essential hypertension with goal blood pressure less than 140/90 XR DXA BONE DENSITY 2 SITES AXIAL Routine 04/18/2021 10:49 AM GAS SCRUBBER OPERATOR Post-menopausal from Last 3 Months or Most Recently Relevant to Health Maintenance Results * [facility] ERROR MESSAGE ABN TEST REFUSAL ([facility]) (07/22/2024 11:00 AM CDT) ABN TEST REFUSAL [facility] Comment: Be advised that your patient has indicated on the advance beneficiary notice their decision not to receive the following laboratory tests. As a result, the tests will not be performed. ABN TEST REFUSAL [facility] 07/22/2024 11:0 0 AM CDT 07/22/2024 11:06 AM CDT us Dennis Perez MD SEND OUTS Final Res ult [facility] [address] [place] [address], [facility] [address] [place] [address] * (ABNORMAL) BASIC METABOLIC PANEL (07/22/2024 11:00 AM CDT) Only the most recent of2 resultswithin the time period is included. GLUCOSE 88 65 - 99 mg/dL [facility] Comment: Fasting reference interval UREA NITROGEN (BUN) 26(H) 7 - 25 mg/dL [facility] CREATININE 0.97(H) 0.60 - 0.95 mg/dL [facility] EGFR 58(L) > OR = 60 mL/min/1.7 3m2 [facility] BUN/CREATININE RATIO 27(H) 6 - 22 (calc) [facility] SODIUM 141 135 - 146 mmol/L [facility] POTASSIUM 4.1 3.5 - 5.3 mmol/L [facility] CHLORIDE 104 98 - 110 mmol/L [facility] CARBON DIOXIDE 32 20 - 32 mmol/L [facility] ELECTROLYTE BALANCE 5(L) 7 - 17 mmol/L (calc) [facility] CALCIUM 9.6 8.6 - 10.4 mg/dL [facility] Blood BLOOD SPECIMEN / Unknown 07/22/2024 11:00 AM CDT 07/22/2024 11:06 AM CDT Dennis Perez MD CHEMISTRY Final Res ult [facility] [address] [place] [address], [facility] [address] * ECHO TTE COMPLETE WO CONTRAST (07/22/2024 10:37 AM CDT) AORTIC VALVE MEAN PG 13 mmHg EJECTION FRACTION 64 % PEAK TR VELOCITY 3.0 m/s LVEDD 4.2 cm EJECTION FRACTION 60 - 65% Anatomical Region Laterality Modality Ultrasound 07/22/2024 10:0 7 AM CDT Narrative 07/22/2024 10:51 AM CDT ECHOCARDIOGRAM GRETA SWANN : 1940 84 years Study Date: 07/22/2024 10:07:59 AM Gender: F BP: 147/65 mmHg Height: 163.00 cm BSA: 1.91 m Weight: 85.00 kg Tech: MNA Referring MD: DENNIS PEREZ Site: [facility] Reading Location: MOBILE-OP Patient Location: Outpatient. Procedure: 2D, Color Doppler and Spectral Doppler. Indication for study: Pulmonary hypertension (HC); Essential hypertension with goal blood pressure less than 140/90 Cardiac Rhythm: Regular.Study quality: Fair. Final Impressions: 1. Normal LV size, normal wall thickness, normal global systolic function with an estimated EF of 60 - 65%. 2. Right ventricular cavity size is normal, global systolic RV function is normal. 3. The aortic valve is trileaflet, no stenosis and mild to moderate regurgitation. 4. Moderately enlarged left atrium. 5. The inferior vena cava is dilated, respiratory size variation less than 50%. 6. Mildly increased estimated pulmonary pressures by tricuspid regurgitation velocity and right atrial pressure (35 mmHg plus RAP). Chamber Sizes and Function Normal left ventricular size, normal wall thickness, normal global systolic function with an estimated EF of 60 - 65%. No resting regional wall motion abnormality visualized. Left atrial size is moderately enlarged. Right ventricular cavity size is normal, global systolic RV function is normal. The right atrium is mildly enlarged. Right atrial volume index is 29 ml/m . Right atrial area is 19 cm . The pulmonary artery is of normal size and origin. The sinus of Valsalva is normal sized. The ascending aorta is normal sized. Valves, RV Pressures and Diastolic Function The aortic valve is trileaflet, no stenosis and mild to moderate regurgitation. The mitral valve is sclerotic, trace mitral regurgitation. Mitral annular calcification is present. Spectral Doppler shows Grade 1 pattern of LV diastolic filling. The tricuspid valve is normal in structure, mild tricuspid regurgitation. The tricuspid regurgitant velocity is 3.0 m/s, the estimated right ventricular systolic pressure is 35 mmHg plus right atrial pressure. There is mildly increased estimated pulmonary pressure by tricuspid regurgitation velocity and right atrial pressure. The pulmonic valve is normal. Trace pulmonary regurgitation. Masses, Effusion, Shunts There is no pericardial effusion. The inferior vena cava is dilated, respiratory size variation less than 50%. No left to right shunting was detected by limited color flow Doppler interrogation of the interatrial septum. MEASUREMENTS AND CALCULATIONS 2-D Measurements and LV Function: LVID (d) 4.2 cm LV FS% (2D) 35 % LVID (s) 2.7 cm LVOT diameter 2.0 cm IVS (d) 1.0 cm HR 70 bpm LVPW (d) 1.0 cm LA Vol index 47 ml/m2 Ao Sinus 3.4 cm RA Vol index 29 ml/m2 Ao Sinus ULN 3.8 cm * RA area 19 cm Asc Ao 3.4 cm RV Basal Diam 3.9 cm Asc Ao ULN 4.1 cm * RV Mid Diam 2.9 cm * Input BSA and age are outside of ranges, reported values correspond to BSA = 1.9 and Age = 80 Diastology: Mitral Tissue Doppler E Peak 0.7 m/s e', Septum 0.08 m/s A Peak 1.0 m/s e', Lateral 0.14 m/s E/A 0.7 E/e' Average 6.22 DT 288 msec Aortic Valve: Vmax 2.4 m/s MALGORZATA (V) 2.03 cm AI P 1/2 505 msec VTI 0.55 m MALGORZATA (I) 1.92 cm LVOT V max 1.6 m/s Max PG 24 mmHg LVOT VTI 0.34 m Mean PG 13 mmHg SV 106 ml Dim Index 0.62 SV index 56 ml/m CO 7.4 l/min CI 3.9 l/min/m Mitral Valve: MVA 2.6 cm MV P 1/2 84 msec Tricuspid Valve and estimated PA pressures: TR Vmax 3.0 m/s TAPSE 2.4 cm TR maxG 35 mmHg Pulmonic Valve: PV Vmax 1.0 m/s . This study was interpreted by an [facility] accredited facility. Final Procedure Note Skyler Park MD - 07/22/2024 ECHOCARDIOGRAM GRETA SWANN : 1940 84 years Study Date: 07/22/2024 10:07:59 AM Gender: F BP: 147/65 mmHg Height: 163.00 cm BSA: 1.91 m Weight: 85.00 kg Tech: MARIAM Referring MD: DENNIS PEREZ Site: [facility] Reading Location: MOBILE-OP Patient Location: Outpatient. Procedure: 2D, Color Doppler and Spectral Doppler. Indication for study: Pulmonary hypertension (HC); Essential hypertensionwith goal blood pressure less than 140/90 Cardiac Rhythm: Regular.Study quality: Fair. Final Impressions: 1. Normal LV size, normal wall thickness, normal global systolic functionwith an estimated EF of 60 - 65%. 2. Right ventricular cavity size is normal, global systolic RV functionis normal. 3. The aortic valve is trileaflet, no stenosis and mild to moderateregurgitation. 4. Moderately enlarged left atrium. 5. The inferior vena cava is dilated, respiratory size variation lessthan 50%. 6. Mildly increased estimated pulmonary pressures by tricuspidregurgitation velocity and right atrial pressure (35 mmHg plus RAP). Chamber Sizes and Function Normal left ventricular size, normal wall thickness, normal globalsystolic function with an estimated EF of 60 - 65%. No resting regionalwall motion abnormality visualized. Left atrial size is moderatelyenlarged. Right ventricular cavity size is normal, global systolic RVfunction is normal. The right atrium is mildly enlarged. Right atrialvolume index is 29 ml/m . Right atrial area is 19 cm . The pulmonaryartery is of normal size and origin. The sinus of Valsalva is normalsized. The ascending aorta is normal sized. Valves, RV Pressures and Diastolic Function The aortic valve is trileaflet, no stenosis and mild to moderateregurgitation. The mitral valve is sclerotic, trace mitral regurgitation.Mitral annular calcification is present. Spectral Doppler shows Grade 1pattern of LV diastolic filling. The tricuspid valve is normal instructure, mild tricuspid regurgitation. The tricuspid regurgitantvelocity is 3.0 m/s, the estimated right ventricular systolic pressure is35 mmHg plus right atrial pressure. There is mildly increased estimatedpulmonary pressure by tricuspid regurgitation velocity and right atrialpressure. The pulmonic valve is normal. Trace pulmonary regurgitation. Masses, Effusion, Shunts There is no pericardial effusion. The inferior vena cava is dilated,respiratory size variation less than 50%. No left to right shunting wasdetected by limited color flow Doppler interrogation of the interatrialseptum. MEASUREMENTS AND CALCULATIONS 2-D Measurements and LV Function: LVID (d) 4.2 cm LV FS% (2D) 35% LVID (s) 2.7 cm LVOT diameter2.0 cm IVS (d) 1.0 cm HR 70bpm LVPW (d) 1.0 cm LA Vol index 47ml/m2 Ao Sinus 3.4 cm RA Vol index 29ml/m2 Ao Sinus ULN 3.8 cm * RA area 19cm Asc Ao 3.4 cm RV Basal Diam3.9 cm Asc Ao ULN 4.1 cm * RV Mid Diam2.9 cm * Input BSA and age are outside of ranges, reported values correspond to BSA = 1.9 and Age = 82 Diastology: Mitral Tissue Doppler E Peak 0.7 m/s e', Septum 0.08 m/s A Peak 1.0 m/s e', Lateral 0.14 m/s E/A 0.7 E/e' Average 6.22 DT 288 msec Aortic Valve: Vmax 2.4 m/s MALGORZATA (V) 2.03 cm AI P 1/2 505 msec VTI 0.55 m MALGORZATA (I) 1.92 cm LVOT V max 1.6 m/s Max PG 24 mmHg LVOT VTI 0.34 m Mean PG 13 mmHg SV 106 ml Dim Index 0.62 SV index 56 ml/m CO 7.4 l/min CI 3.9 l/min/m Mitral Valve: MVA 2.6 cm MV P 1/2 84 msec Tricuspid Valve and estimated PA pressures: TR Vmax 3.0 m/s TAPSE 2.4 cm TR maxG 35 mmHg Pulmonic Valve: PV Vmax 1.0 m/s . This study was interpreted by an [facility] accredited facility. Final us Dennis Perez MD ECHO ORD Final Res ult * LIPID PANEL W REFLEX MEASURED LDL (06/11/2024 12:32 PM CDT) Pathologist [facility] CHOLESTEROL, TOTAL 179 <200 mg/dL [facility] HDL CHOLESTEROL 78 > OR = 50 mg/dL [facility] TRIGLYCERIDES 58 <150 mg/dL [facility] LDL-CHOLESTEROL 87 mg/dL (calc) [facility] Comment: Reference range: <100 Desirable range <100 mg/dL for primary prevention; <70 mg/dL for patients with CHD or diabetic patients with > or = 2 CHD risk factors. LDL-C is now calculated using the Fahad calculation, which is a validated novel method providing better accuracy than the Friedewald equation in the estimation of LDL-C. Remy VIDES et al. DANDRE. 2013;310(37): 8171-5962 (http://education.Social Project/faq/QGV920) CHOL/HDLC RATIO 2.3 <5.0 (calc) [facility] NON HDL CHOLESTEROL 101 <130 mg/dL (calc) [facility] Comment: For patients with diabetes plus 1 major ASCVD risk factor, treating to a non-HDL-C goal of <100 mg/dL (LDL-C of <70 mg/dL) is considered a therapeutic option. Blood BLOOD SPECIMEN / Unknown 06/11/2024 12:32 PM CDT 06/11/2024 12:32 PM CDT Narrative [facility] - 06/12/2024 5:05 AM CDT FASTING:YES FASTING: YES Kisha Mena MD CHEMISTRY Fi nal Result [facility] [address] [place] [address], [facility] [address] [place] [address] * (ABNORMAL) XR DXA BONE DENSITY 2 SITES AXIAL (04/18/2021 10:49 AM GAS SCRUBBER OPERATOR) Anatomical Region Laterality Modality Spine, HIPS, HIPL, HIPR Other Impressions 04/24/2021 2:49 PM CDT Osteopenia. Significant decrease in BMD from prior scan with markedly elevated FRAX scores. RECOMMENDATIONS: The National Osteoporosis Foundation recommends pharmacologic treatment for patients with T-scores of -2.5 or less, patients with prior history of fragility fractures, or patients with 10-year probability of greater than 3% at hips or greater than 20% of suffering major osteoporotic fractures. Recommend continued optimization of calcium and vitamin D intake through dietary means and/or supplementation and regular exercise. Consider pharmacologic therapy for osteopenia with increased fracture risk. Follow-up bone density reading in 2 years if therapy initiated to assess therapeutic efficacy. Ava Merino ROBBY Narrative 04/24/2021 2:49 PM CDT For Patients: Results are automatically released to your [facility] ([employer]) account once available, in compliance with federal regulations. This means that you may see your results before your provider has had a chance to review them. Please allow 2-3 business days for your provider to comment on the results. XR DXA Bone Mineral Density (BMD) EXAM LOCATION: [address] [address] PATIENT NAME: Greta Swann DATE OF : 1940 EXAM DATE: 04/18/2021 REQUESTING PROVIDER: Kisha Mena MD GENDER AT : female HEIGHT: 5' 4 (03/28/2021) WEIGHT: 169 lb 3.2 oz (03/28/2021) MENOPAUSAL STATUS: Postmenopausal RACE/ETHNICITY: White RISK FACTORS: Family History of Hip Fracture (parental) and White Race CURRENT MEDICATION FOR BONE LOSS: NONE INDICATION: Post-Menopause COMPARISON DATE(S): 2013 DXA scans are compared to prior studies for a patient only when the two (or more) studies were performed on the same scanner. It is not possible to compare data generated on one scanner to data from another because there are not standards in DXA equipment. This applies even if the two scanners are made by the same hose finisher. PROCEDURE: Dual-energy x-ray absorptiometry performed with routine technique. Reporting is completed in the form of a T-score. The T-score represents the standard deviation from peak bone mass based on young healthy adult. A Z-score is used for diagnosis in premenopausal women, and for men under the age of 50. FINDINGS: RESULT LUMBAR SPINE L1 - L4 BMD: 1.101 g/cm2 T-Score: - 0.7 Z-Score: + 0.8 Change from prior in 2013: Increase 1.6%. RESULTS FEMUR Left femoral neck BMD: 0.842 g/cm2 T-Score: - 1.4 Z-Score: + 0.4 Change from prior in 2013: Decrease 7.3%. Right femoral neck BMD: 0.734 g/cm2 T-Score: - 2.2 Z-Score: - 0.3 Change from prior in 2014: Decrease 5.3%. Left hip BMD: 0.916 g/cm2 T-Score: - 0.7 Z-Score: + 0.9 Change from prior in 2014: Decrease 8.1%. Right hip BMD: 0.805 g/cm2 T-Score: - 1.6 Z-Score: + 0.1 Change from prior in 2014: Decrease 11.0%. WHO criteria: Normal: T-score at or above -1 SD Osteopenia: T-score between -1.1 and -2.4 SD Osteoporosis: T-score at or below -2.5 SD FRAX RISK CALCULATION (USED FOR OSTEOPENIA ONLY): 10-year probability of major osteoporotic fracture: 30.4%. 10-year probability of hip fracture: 20.0%. 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
--- OUTSIDE RECORDS SUMMARY | 2024-08-10 12:46 | XMS_ITS | Referral Summary ---
Author Organization [facility] Address [address] [place] [address] Care Team Providers Care Online Editor Name Role Phone Kisha Mena MD Primary Care Prov ider Wood Lanier MD Unavailable [phone] Encounters Date Type Department Care Team Description 07/24/2024 11:00 AM CDT Office Visit [facility] [address] [place] [address] Wood Lanier MD Ataxia (Primary Dx); Hyperreflexia; Diplopia; Thymoma from Last 3 Months Allergies Active Allergy Reactions Criticality Noted Date [...] Resolved Date Parkinson's disease 02/26/2019 08/09/19 25 Social History Tobacco Use Types Packs/Day Years [...] Orientation Not on file Plan of Treatment Not on file Insurance MEDICARE PART A & B [facility] [employer]ER[employer] EMPLOYEE Care Teams Online Editor Relationship Specialty Start Date End Date Kisha Mena MD [address] [place] [address] PCP - General Family Medicine - 06/24/24 Wood Lanier MD [address] [facility] [address] [place] [address] Neurology 06/24/24
--- OUTSIDE RECORDS SUMMARY | 2024-08-10 12:46 | XMS_ITS | Encounter Summary ---
Author Organization [facility] [place] Address [address] [facility] 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 Gender Identity Not on file Sexual Orientation Not on file documented as of this encounter Plan of Treatment Upcoming Encounters Date Type Department Care Team (Late st Contact Info) Description 12/04/2024 11:00 AM CDT Office Visit [address] [place] [address] Chon Rosario MD [address] [id number] documented as of this encounter Visit Diagnoses Not on filedocumented in this encounter Care Teams House Supervisor Relationship Specialty Start Date End Date Kisha Mena MD [address] [place] [address] PCP - General Family Medicine 12/17/23 Lito Sanz MD [address] [place] [address] [phone] Ophthalmology 11/01/23 Chon Rosario MD [address] [place] [address] [phone] Ophthalmology 12/17/23 Chon Rosario MD [address] [id number] Assigned Surgical Provider 03/05/24 documented as of this encounter
--- NOTE | 2024-08-10 13:00 | CRLHL7_ITS ---
For Patients: As a result of the Century Cures Act, medical imaging exams and procedure reports are released immediately into your electronic medical record. You may view this report before your referring provider. If you have questions, please contact your health care provider. Indication: Thymoma Technique: Postcontrast CT chest. 75 cc Isovue 370 intravenous contrast. Please note that all CT scans at this facility use dose modulation, iterative reconstruction, and/or weight-based dosing when appropriate to reduce radiation dose to as low as reasonably achievable. Comparison: None Findings: 7 millimeter nodule within the right thyroid lobe. No further follow-up indicated. Atherosclerotic changes noted. No aortic aneurysm or dissection. No adenopathy. Spleen is normal in size. Tortuosity of the descending thoracic aorta. Multilevel degenerative disc disease. Increased thoracic kyphosis. No vertebral body compression fracture. Rightward curvature of the thoracic spine. No anterior mediastinal mass. No hiatal hernia. Multiple pulmonary nodules are present bilaterally measuring up to 8.5 millimeters. Linear subsegmental scarring in both lower lobes noted. Incidental simple left renal cyst measures 2.0 cm. Lobular thickening of the left adrenal gland noted. Normal right adrenal gland. Impression: Multiple bilateral pulmonary nodules measuring up to 8.5 millimeters, suspicious for metastatic disease. Indeterminate lobular thickening of the left adrenal gland. No anterior mediastinal mass or intrathoracic adenopathy. Please note that all CT scans at this facility use dose modulation, iterative reconstruction, and/or weight-based dosing when appropriate to reduce radiation dose to as low as reasonably achievable. Dictated by Skyler Monroe MD @ 08/10/2024 3:12:16 PM (Electronically Signed)
[2024-08-10 13:25] LABS: Creatinine* 0.9 mg/dL (0.5-1.5); Estimated Glomerular Filt Rate 64 ml/min
--- NOTE | 2024-08-10 13:45 | CRLHL7_ITS ---
For Patients: As a result of the Century Cures Act, medical imaging exams and procedure reports are released immediately into your electronic medical record. You may view this report before your referring provider. If you have questions, please contact your health care provider. Indication: Thymoma. Technique: Noncontrast sagittal T1, T2, STIR and axial T2 SE and GRE sequences are provided. Comparison: No prior studies available for comparison at this institution. Findings: Normal cervical lordotic curvature. Slight retrolisthesis at C4-5 and C5-6 levels. The craniocervical junction is unremarkable. No marrow replacing or aggressive osseous lesions identified. No abnormal spinal cord signal. C1-2: No spinal canal stenosis. C2-3: No spinal canal stenosis or neural foraminal narrowing. C3-4: Small central disc protrusion and ligamentum flavum buckling. Mild spinal canal stenosis. Mild bilateral neural foraminal narrowing. Mild facet joint arthropathy. C4-5: Disc osteophyte complex, uncovertebral joint hypertrophy and facet arthrosis. Mild spinal canal stenosis. Moderate neural foramen narrowing bilaterally. C5-6: Disc osteophyte complex and ligamentum flavum buckling. Mild to moderate spinal canal stenosis. Uncovertebral joint hypertrophy. Severe left and moderate-severe right neural foraminal narrowing. Bilateral facet arthropathy. C6-7: Small right central disc osteophyte complex and uncovertebral joint hypertrophy. Mild right neural foraminal narrowing. No left neural foraminal narrowing. C7-T1: No significant spinal canal stenosis or neural foraminal narrowing. Impression: 1. No acute osseous or ligamentous abnormality. No evidence of osseous metastasis. 2. Jufm-kt-vinoeuqh spinal canal stenosis at C5-6 and mild stenosis at C3-4 and C4-5. 3. Advanced neural foraminal narrowing at C4-5 and C5-6. Milder degenerative changes at remaining levels detailed above. 4. No abnormal spinal cord signal. No intradural pathology. Dictated by Skyler Main MD @ 08/10/2024 3:21:42 PM (Electronically Signed)
--- NOTE | 2024-08-10 14:30 | CRLHL7_ITS ---
For Patients: As a result of the 21st Century Cures Act, medical imaging exams and procedure reports are released immediately into your electronic medical record. You may view this report before your referring provider. If you have questions, please contact your health care provider. Indication: Thymoma Technique: Noncontrast sagittal T1, axial FLAIR, T2 turbo spine echo, SWI, and diffusion weighted images. Supplemental post contrast T1 weighted axial and coronal sequences are provided after administration of 15 cc Dotarem gadolinium-based IV contrast. Comparison: No prior studies available for comparison at this institution. Findings: Examination is limited by motion artifact. There are multiple scattered foci of T2 prolongation in the supratentorial white matter that are nonspecific.. Mild parenchymal volume loss. The midline structures are centrally located with no evidence of shift. There are no suspicious intra or extra-axial fluid collections. No evidence of restricted diffusion to suggest acute ischemia. Expected flow voids in the cavernous carotids and basilar artery. No abnormal contrast enhancement involving the brain parenchyma, meninges, calvarium or skull base. Chronic bilateral cataract surgery changes. Retention cyst in the right posterior nasopharynx. Impression: 1. No acute intracranial abnormality. 2. Multiple scattered foci of T2 prolongation are nonspecific but may represent chronic small vessel ischemic changes. 3. No pathologic enhancement to suggest intracranial metastases. Dictated by Skyler Main MD @ 08/10/2024 2:55:26 PM (Electronically Signed)
--- OUTSIDE RECORDS SUMMARY | 2024-08-11 01:58 | XMS_ITS | Encounter Summary ---
Author Organization [facility] Address [address] [facility] [place] [address] Care Team Providers Care Neighborhood Conservation Officer Name Role Phone Lito Sanz MD Unavailable Kisha Mena MD Primary Care Provider [phone] Chon Rosario MD Unavailable [phone] Chon Rosario MD Unavailable [phone] Reason for Visit * Reason Onset Date Comments Call Back 04/01/2024 Encounter Details Date Type Department Care Team (Late st Contact Info) Description 04/01/[address] [address] [place] [phone] Chon Rosario MD [address] [place] [address] Call Back Social History Tobacco [...] on file 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 Gender Identity Not on file Sexual Orientation [...] Travel Screening: Not Applicable Date of Service: DELIVERY VEHICLE TEAM TECHNICIAN documented in this encounter Plan of Treatment Upcoming Encounters Date Type Department Care Team (Late st Contact Info) Description 12/04/2024 11:00 AM CDT Office Visit [facility] [address] [facility] [address] Clin [address] [place] [address] Chon Rosario MD [address] [place] [address] documented as of this encounter Visit Diagnoses Not on filedocumented in this encounter Care Teams Neighborhood Conservation Officer Relationship Specialty Start Date End Date Kisha Mena MD [address] [place] [address] PCP - General Family Medicine 12/17/23 Lito Sanz MD [address] [place] [address] [phone] Ophthalmology 11/01/23 Chon Rosario MD [address] [place] [address] [phone] Ophthalmology 12/17/23 Chon Rosario MD [address] [place] [address] Assigned Surgical Provider 03/05/24 documented as of this encounter
--- OUTSIDE RECORDS SUMMARY | 2024-08-11 01:58 | XMS_ITS | Encounter Summary ---
Author Organization [facility] Address [address] [facility] [place] [address] Care Team Providers Care Conveyor Belt Repairer Name Role Phone Lito Sanz MD Unavailable [phone] Kisha Mena MD Primary Care Provider [phone] Chon Rosario MD Unavailable [phone] Chon Rosario MD Unavailable [phone] Reason for Visit * Reason Onset Date Comments Neurologist info 07/24/2024 Encounter Details Date Type Department Care Team (Late st Contact Info) Description 07/24/[address] 9[facility] [address] [place] [phone] Chon Rosario MD [address] [place] [address] Neurologist info Social History Tobacco [...] on file 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 Gender Identity Not on file Sexual Orientation Not on file documented as of this encounter Miscellaneous Notes * Telephone Encounter - Maureen Barbosa - 07/24/2024 8:46 AM CDT Health Call Center Phone Message May a detailed message be left on voicemail: yes Reason for Call: Other: Pt wanted to let Dr Rosario know the name of her neurologist that pt is seeing today [place] [facility] provider Dr Gregorio Pt advised [...] Description 12/04/2024 11:00 AM CDT Office Visit [facility] - [place] [id number] [facility] Clin [address] [place] [address] Chon Rosario MD [address] [place] [address] documented as of this encounter Visit Diagnoses Not on filedocumented in this encounter Care Teams Conveyor Belt Repairer Relationship Specialty Start Date End Date Kisha Mena MD [address] [place] [address] PCP - General Family Medicine 12/17/23 Lito Sanz MD [address] [place] [address] Ophthalmology 11/01/23 Chon Rosario MD [address] [place] [address] Ophthalmology 12/17/23 Chon Rosario MD [address] [place] [address] [address] Assigned Surgical Provider 03/05/24 documented as of this encounter
--- OUTSIDE RECORDS SUMMARY | 2024-08-11 01:58 | XMS_ITS | Clinical Summary ---
Author Organization [place] Address [facility] [place] [address] Care Team Providers Care Dairy And Food Laboratory Assistant Name Role Phone Lito Sanz MD Unavailable [phone] Kisha Mena MD Primary Care Provider [phone] Chon Rosario MD Unavailable [phone] Chon Rosario MD Unavailable [phone] Allergies No known active allergies Medications HYDROCHLOROTHIA ZIDE PO Active LISINOPRIL PO Active furosemide (LASIX) 20 MG tablet Take 20 mg by mouth. 4 Active prednisoLONE acetate (PRED FORTE) 1 % ophthalmic suspensionIndic ations:Status post eye surgery Instill 1 drop into operative eye(s) four times a day. Do NOT start drops until instructed by Surgeon. 10 mL 5 Active neomycin-polymy collins-dexAMETHaso ne (MAXITROL) 3.5-77343-9.1 ophthalmic ointmentIndicat ions:Status post eye surgery Place [...] Type Department Care Team Description 07/24/[address] [address] Chon Rosario MD Neurologist info 07/23/2024 12:30 PM CDT Office Visit [address] [address] Chon Rosario MD Double vision (Primary Dx); Subjective visual disturbance; Hypertropia of left eye 07/23/2024 Travel 05/21/2024 1:45 PM CDT Lab [facility] [address] [facility] [address] 1st [place] [address] Double vision; Hypertropia of right eye 05/21/2024 10:30 AM CDT Office Visit [address] [address] Chon Rosario MD Hypertropia of right eye [...] on file 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 Female 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 Gender Identity Not on file Sexual Orientation Not on file Last Filed Vital Signs Vital Sign Reading Time Taken Comments Blood Pressure 135/69 03/30/2024 10:21 AM TRANSFER COORDINATOR Pulse 59 03/30/2024 10:21 AM TRANSFER COORDINATOR Temperature 36.1 C (97 F) 03/30/2024 10:21 AM TRANSFER COORDINATOR Respiratory Rate 16 03/30/2024 10:21 AM TRANSFER COORDINATOR Oxygen Saturation 95% 03/30/2024 10:21 AM TRANSFER COORDINATOR Inhaled Oxygen Concentration - - Weight 83 kg (183 lb) 03/30/2024 6:15 AM TRANSFER COORDINATOR Height 162.6 cm (5' 4) 03/30/2024 6:15 AM TRANSFER COORDINATOR Body Mass Index 31.41 03/30/2024 6:15 AM TRANSFER COORDINATOR Plan of Treatment Upcoming Encounters Date Type Department Care Team (Late st Contact Info) Description 12/04/2024 11:00 AM CDT Office Visit [facility] Eye [place] [address] [facility] 9th [address] Clin [address] [place] [address] Chon Rosario MD [address] [place] [address] Health Maintenance Due Date Last Done Comments [...] 0.14(H) <=0.02 nmol/L 05/28/2024 5:13 PM CDT [facility] Comment: Due to a change in assay reagent for the Acetylcholine Receptor (Muscle AChR) Binding Antibody (ARBI) test, direct quantitative comparison to previous testing results is not advised. ADDITIONAL INFORMATION This test was developed and its performance characteristics determined by [facility] in a manner consistent with CLIA requirements. This test has not been cleared or approved by the U.S. Food and Drug Administration. Test Performed by: [facility] [place] [address] It Infrastructure Architect: Tiffany Garces Ph.D.; CLIA# [id number] MG Interpretive Comments SEE NOTE 05/28/2024 5:13 PM CDT [facility] Comment: The following antibodies were identified: [...] LAB - BLOOD ORDERAB LES Final Result [facility] [address] [place] [address], [facility] [phone] * AChR Modulating Flow Cytometry, S: (05/21/2024 12:39 PM CDT) Pathologist [facility] AChR Modulating Flow Cytometry, S Negative Negative 05/28/2024 3:29 PM CDT [facility] Comment: ADDITIONAL INFORMATION This test was developed and its performance characteristics determined by [facility] in a manner consistent with CLIA requirements. This test has not been cleared or approved by the U.S. Food and Drug Administration. Test Performed by: [facility] - [facility] [address] [place] [address] It Infrastructure Architect: Tiffany Garces Ph.D.; CLIA# [id number] Blood STRUCTURE OF RIGHT UPPER LIMB / Unknown Venipuncture / Unknown 05/21/2024 12:39 PM CDT 05/21/2024 12:39 PM CDT us Chon Rosario MD LAB - CSF ORDERABLE S Final Result [facility] [address] [place] [address], [facility] [phone] from Last 3 Months Insurance [facility] [employer] MEDICARE Care Teams Dairy And Food Laboratory Assistant Relationship Specialty Start Date End Date Kisha Mena MD [address] [place] [address] PCP - General Family Medicine 12/17/23 Lito Sanz MD [address] [place] [phone] Ophthalmology 11/01/23 Chon Rosario MD [address] [place] [address] Ophthalmology 12/17/23 Chon Rosario MD [address] [place] [address] [phone] Assigned Surgical Provider 03/05/24
--- OUTSIDE RECORDS SUMMARY | 2024-08-11 01:58 | XMS_ITS | Clinical Summary ---
Author Organization [facility] Address [address] [place] [address] Care Team Providers Care Environmental Management Specialist Name Role Phone Kisha Mena MD Primary Care Prov ider Wood Lanier MD Unavailable [phone] Allergies Active Allergy Reactions Criticality Noted Date [...] Dry eyes 08/07/2013 Osteopenia 10/16/2011 Overview (07/24/2024): 2014 increase bone loss in spine and hips [...] Encounters Date Type Department Care Team Description 08/10/2024 Order-Scan [address] [place] [phone] Wood Lanier MD 07/24/2024 11:00 AM CDT Office Visit [address] [place] [phone] Wood Lanier MD Ataxia (Primary Dx); Hyperreflexia; [...] 1-dose 75+ series) 2017 Osteoporosis Screening 04/19/2023 , 02/09/2014, 10/16/2011 COVID-19 Vaccine ( season) 2024 11/25/2023, 11/20/2022, 06/22/2022, Additional history exists Medicare Wellness Visit 06/11/2025 06/12/19 25, 06/04/2023, 04/03/2022, Additional history exists Adult Tetanus Booster 02/05/2033 02/05/2023 , 02/28/2010, 02/24/2008 Pneumococcal 50+ Years Completed 01/24/2017, 2008 Zoster Vaccine Completed 02/15/2023, 10/12, 02/28/2010 Influenza Vaccine Completed 11/25/2023, , 11/15/2021, Additional history exists Meningococcal B Vaccine Aged Out No l onger eligible based on patient's age to complete this topic Procedures Procedure Name Priority Date/Time Associated Diagnosis Comments SCANNED RADIOLOGY Routine 08/10/2024 3:52 PM CDT SCANNED LAB Routine 08/10/2024 3:49 PM CDT SCANNED RADIOLOGY Routine 08/10/2024 3:48 PM CDT from Last 3 Months Results * SCANNED RADIOLOGY (08/10/2024 3:52 PM CDT) Only the most recent of2 resultswithin the time period is included. 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
--- OUTSIDE RECORDS SUMMARY | 2024-08-11 01:59 | XMS_ITS | Referral Summary ---
Author Organization [facility] Address [address] [place] [address] Care Team Providers Care Consumer Services Consultant Name Role Phone Kisha Mena MD Primary Care Prov ider Wood Lanier MD Unavailable [phone] Encounters Date Type Department Care Team Description 08/10/2024 Order-Scan [address] [place] [phone] Wood Lanier MD 07/24/2024 11:00 AM CDT Office Visit [address] [place] [address] Wood Lanier MD Ataxia (Primary Dx); Hyperreflexia; [...] file Plan of Treatment Not on file Procedures Procedure Name Priority Date/Time Associated Diagnosis Comments SCANNED RADIOLOGY Routine 08/10/2024 3:52 PM CDT SCANNED LAB Routine 08/10/2024 3:49 PM CDT SCANNED RADIOLOGY Routine 08/10/2024 3:48 PM CDT from Last 3 Months Results * SCANNED RADIOLOGY (08/10/2024 3:52 PM CDT) Only the most recent of2 resultswithin the time period is included. 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
--- OUTSIDE RECORDS SUMMARY | 2024-08-11 01:59 | XMS_ITS | Clinical Summary ---
Author Organization [facility] Address [address] [place] [address] Care Team Providers Care Heavy Equipment Service Technician Name Role Phone Kisha Mena MD Primary [...] Team Description 07/28/2024 11:30 AM CDT Telemedicine [facility] [id number] [place] [address] [address] [place] [address] Dennis Perez MD 07/28/2024 Travel 07/22/2024 11:45 AM CDT Orders Only [facility] [address] [place] [address] Lab, [place] Lab 07/22/2024 10:00 AM CDT Ancillary Procedure [facility] [address] [place] [address] 07/22/2024 Travel 06/24/2024 Telephone [facility] [address] [place] [address] Kisha Mena MD Referral 06/17/2024 Nurse Triage [address] [address] Kisha Mena MD Dizziness 06/17/[address] [place] [address] Kisha Mena MD Referral (Neurology) 06/11/2024 11:05 AM CDT Office Visit [address] [place] [address] Kisha Mena MD Medicare ANNUAL (subsequent) Visit (84 yo female) 06/11/2024 Travel 05/25/2024 11:30 AM CDT Nurse/Clinic Staff Only [address] [address] Immunization/Inject ion (PROLIA INJECTION) 05/25/2024 Travel from Last 3 Months Immunizations Immunization Administration Dates Next Due COVID-19 vaccine (Nasuni-Bio NTech 30mcg/0.3mL) 12YO+ ALICJA-SUCROSE MARIPOSA NICHOLS 06/14/2021 COVID-19 vaccine (Nasuni-[employer] NTech 30mcg/0.3mL) MARIPOSA NICHOLS 11/28/2020,04/28/2020,04/07/2020 Influenza A [...] on file Legal Sex Female 5:26 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 Gender Identity Not on file Sexual Orientation [...] 36.4 C (97.6 F) 03/10/2024 2:36 PM FUSING MACHINE TENDER Respiratory Rate 14 08/16/2023 2:51 PM CDT [...] Info) Description 08/19/2024 11:45 AM CDT Appointment [address] [address] Mica Huggins, PT [address] [place] [address] Health Maintenance Due Date Last Done Comments [...] 2 SITES AXIAL Routine 04/18/2021 10:49 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 TENDER Post-menopausal from Last 3 Months or Most [...] SEND OUTS Final Res ult [facility] [address] [place] [address], [facility] [address] [place] [address] * (ABNORMAL) BASIC METABOLIC PANEL (07/22/2024 11:00 AM CDT) Only the most recent of2 resultswithin the time period is included. GLUCOSE 88 65 - 99 mg/dL [facility] Comment: Fasting reference interval UREA NITROGEN (BUN) 26(H) 7 - 25 mg/dL [facility] CREATININE 0.97(H) 0.60 - 0.95 mg/dL [facility] [...] Dennis Perez MD CHEMISTRY Final Res ult [facility] [address] [place] [address], [facility] [address] * ECHO TTE COMPLETE WO CONTRAST (07/22/2024 [...] Tech: MNA Referring MD: DENNIS PEREZ Site: [facility] Reading Location: MOBILE-OP Patient Location: [...] . This study was interpreted by an [facility] accredited facility. Final Procedure Note Skyler Park MD - 07/22/2024 ECHOCARDIOGRAM GRETA SWANN : 1940 84 years Study Date: 07/22/2024 10:07:59 AM Gender: F BP: 147/65 mmHg Height: 163.00 cm BSA: 1.91 m Weight: 85.00 kg Tech: MARIAM Referring MD: DENNIS PEREZ Site: [facility] Reading Location: MOBILE-OP Patient Location: [...] . This study was interpreted by an [facility] accredited facility. Final us Dennis Perez MD ECHO ORD Final Res ult * LIPID PANEL W REFLEX MEASURED LDL (06/11/2024 12:32 PM CDT) Pathologist [facility] CHOLESTEROL, TOTAL 179 <200 mg/dL [facility] [...] of LDL-C. Remy VIDES et al. DANDRE. 2013;310(52): 7555-9828 (http://education.Kickit With/faq/OKZ517) CHOL/HDLC RATIO 2.3 <5.0 (calc) [facility] NON HDL CHOLESTEROL 101 <130 mg/dL (calc) [facility] Comment: For patients with diabetes plus 1 major ASCVD risk factor, treating to a non-HDL-C goal of <100 mg/dL (LDL-C of <70 mg/dL) is considered a therapeutic option. Blood BLOOD SPECIMEN / Unknown 06/11/2024 12:32 PM CDT 06/11/2024 12:32 PM CDT Narrative [facility] - 06/12/2024 5:05 AM CDT FASTING:YES FASTING: YES Kisha Mena MD CHEMISTRY Fi nal Result [facility] [address] [place] [address], [facility] [address] [place] [address] * (ABNORMAL) XR DXA BONE DENSITY 2 SITES AXIAL (04/18/2021 10:49 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 TENDER) Anatomical Region Laterality Modality Spine, HIPS, HIPL, [...] Patients: Results are automatically released to your [facility] account once available, in compliance with federal regulations. This means that you may see your results before your provider has had a chance to review them. Please allow 2-3 business days for your provider to comment on the results. XR DXA Bone Mineral Density (BMD) EXAM LOCATION: [address] [address] PATIENT NAME: Greta Swann DATE OF : [...] two scanners are made by the same seeing eye dog trainer. PROCEDURE: Dual-energy x-ray absorptiometry performed with routine [...] PB ONLY MEDICARE PART A HB ONLY [facility] [place] [address] MEDICARE PB ONLY MEDICARE PART B HB ONLY Advance Directives Documents on File Type Date Recorded Patient Pnp Expl anation Healthcare Directive 02/23/2011 [facility] JOSEFINA HAWTHORNE, 02/23/2011 Care Teams Heavy Equipment Service Technician Relationship Specialty Start Date End Date Kisha Mena MD [address] [facility] [place] [address] [facility] - General 06/10/05
--- OUTSIDE RECORDS SUMMARY | 2024-08-11 01:59 | XMS_ITS | Encounter Summary ---
Author Organization [facility] Address [address] [place] [address] Care Team Providers Care Recreation Leader Name Role Phone Kisha Mena MD Primary Care Prov ider Wood Lanier MD Unavailable [phone] Encounter Details Date Type Department Care Team (Late st Contact Info) Description 08/10/2024 Order-Scan [facility] Neurology [address] [place] [address] Wood Lanier MD [address] [place] [address] [place] [address] Social History Tobacco Use Types Packs/Day Years Used Date Smoking Tobacco: Never Smokeless Tobacco: Never Alcohol Use Standard Drinks/Week Comments Never 0 (1 standard drink = 0.6 oz pur e alcohol) Comments Unknown Sex and Gender Information Value Date Recorded Sex Assigned at Not on file Legal Sex Female 9:22 AM CDT Gender Identity Not on file Sexual Orientation Not on file documented as of this encounter Plan of Treatment Not on file documented as of this encounter Procedures Procedure Name Priority Date/Time Associated Diagnosis Comments SCANNED RADIOLOGY Routine 08/10/2024 3:52 PM CDT SCANNED LAB Routine 08/10/2024 3:49 PM CDT SCANNED RADIOLOGY Routine 08/10/2024 3:48 PM CDT documented in this encounter Results * SCANNED RADIOLOGY (08/10/2024 3:52 PM CDT) Anatomical Region Laterality Modality Other us Wood Lanier MD XRAY ORDERABLE Final Res ult * SCANNED LAB (08/10/2024 3:49 PM CDT) us Wood Lanier MD MICROBIOLOGY ORDERABLE Fi nal Result * SCANNED RADIOLOGY (08/10/2024 3:48 PM CDT) Anatomical Region Laterality Modality Other us Wood Lanier MD XRAY ORDERABLE Final Res ult documented in this encounter Visit Diagnoses Not on filedocumented in this encounter Care Teams Recreation Leader Relationship Specialty Start Date End Date Kisha Mena MD [address] [place] [address] PCP - General Family Medicine - 06/24/24 Wood Lanier MD [address] [facility] [address] [place] [address] Neurology 06/24/24 documented as of this encounter
--- OUTSIDE RECORDS SUMMARY | 2024-08-11 01:59 | XMS_ITS | Encounter Summary ---
Author Organization [facility] Address [address] [place] [address] Care Team Providers Care Yarn Carrier Name Role Phone Lito Sanz MD Unavailable [phone] Kisha Mena MD Primary Care Provider [phone] Chon Rosario MD Unavailable [phone] Chon Rosario MD Unavailable [phone] Encounter Details Date Type Department Care Team [...] on file Legal Sex Female 4:53 AM PRINTER APPRENTICE Gender Identity Not on file Sexual Orientation Not on file documented as of this encounter Plan of Treatment Upcoming Encounters Date Type Department Care Team (Late st Contact Info) Description 12/04/2024 11:00 AM CDT Office Visit [address] [place] [address] Chon Rosario MD [address] [address] documented as of this encounter Visit Diagnoses Not on filedocumented in this encounter Care Teams Yarn Carrier Relationship Specialty Start Date End Date Kisha Mena MD [address] [place] [address] PCP - General Family Medicine 12/17/23 Lito aSnz MD [address] [place] [address] Ophthalmology 11/01/23 Chon Rosario MD [address] [place] [phone] Ophthalmology 12/17/23 Chon Rosario MD [address] [phone] Assigned Surgical Provider 03/05/24 documented as of this encounter
== END 2024-08-10 12:28 | disposition home or self-care (01) ==
PROVIDERS: PCP Family Medicine; Visit Provider Psychiatry & Neurology Neurology
DX: D49.89 Neoplasm of unspecified behavior of other specified sites (principal); R91.8 Other nonspecific abnormal finding of lung field; E27.9 Disorder of adrenal gland, unspecified; M48.02 Spinal stenosis, cervical region
CPT/HCPCS: 36415; 70553; 71260; 72141; 82565; A9575; Q9967